=== PATIENT | male | born 1995 | race Caucasian/White ===

== ENCOUNTER 2019-11-11 11:55 | Emergency (ER) | payer OTHER ==
[2019-11-11 12:23] VITALS: BP 147/78
--- NOTE | 2019-11-11 12:54 | ED Physician Documentation ---
PD HPI MAJOR TRAUMA - Stated complaint Stated Complaint: RIB PX - Chief complaint Chief Complaint: Trauma Ch/Bk - History obtained from History obtained from: Patient - History of Present Illness Mechanism of injury: Fell Where injury occurred: Work (fell into a machine and struck right lateral ribs, few days ago and has had persistent pain despite OTC meds.) Timing - onset: How many days ago (3) Injury(ies) location: Chest (right lateral lower ribs) Quality of pain: Aching, Sharp Associated symptoms: No: LOC, Neck pain, Weakness Worsens with: Movement, Palpation, Other (deep breathing) Review of Systems Constitutional: denies: Fever, Chills Nose: denies: Rhinorrhea / runny nose, Congestion Throat: denies: Sore throat Cardiac: denies: Palpitations, Pedal edema, Calf pain Respiratory: denies: Dyspnea, Cough, Wheezing GI: denies: Abdominal Pain, Nausea, Vomiting PD PAST MEDICAL HISTORY - Past Medical History Past Medical History: No - Present Medications Home Medications: Ambulatory Orders Medication Instructions Recorded Confirmed Hydrocodone/Acetaminophen 1 each PO Q6H PRN #15 tablet 11/11/19 [Hydrocodone-Acetamin 5-325 mg] Ibuprofen [Motrin] 600 mg PO TID PRN #25 tab 11/11/19 - Allergies Allergies/Adverse Reactions: Allergies Allergy/AdvReac Type Severity Reaction Status Date / Time No Known Drug Allergies Allergy Verified 11/11/19 12:22 PD ED PE NORMAL - Vitals Vital signs reviewed: Yes - General General: Alert and oriented X 3, No acute distress (resting easily. Seems uncomfortable with twisting or moderate breathing. ), Well developed/nourished - Neck Neck: Supple, no meningeal sign, No bony TTP, No adenopathy - Cardiac Cardiac: RRR, No murmur - Respiratory Respiratory: Clear bilaterally, Other (right lateral chest wall with tenderness without crepitance about ribs 8-10. No bruising. ) - Abdomen Abdomen: Soft - Derm Derm: Normal color, Warm and dry - Extremities Extremities: Normal ROM s pain Results - Vitals Vitals: Vital Signs - 24 hr 11/11/19 12:20 Temperature 36.5 C Heart Rate 88 Respiratory 16 Rate Blood Pressure 147/78 H O2 Saturation 99 Oxygen O2 Source Room air - Rads (name of study) right ribs with CXR Radiology: Prelim report reviewed (normal without fracture seen. Lungs clear. ), See rad report PD MEDICAL DECISION MAKING - ED course Complexity details: reviewed results, considered differential (seems contusion chestwall. to get xrays ribs to eval for fractures. ), d/w patient Departure - Departure Disposition: 01 Home, Self Care Clinical Impression: Chest wall contusion Qualifiers: Encounter type: initial encounter Laterality: right Qualified Code(s): S20.211A - Contusion of right front wall of thorax, initial encounter Accidental fall Qualifiers: Encounter type: initial encounter Qualified Code(s): W19.XXXA - Unspecified fall, initial encounter Condition: Stable Record reviewed to determine appropriate education?: Yes Instructions: ED Contusion Chest Wall Follow-Up: ALBERTO Quach [Provider Group] Prescriptions: Hydrocodone/Acetaminophen [Hydrocodone-Acetamin 5-325 mg] 1 each PO Q6H PRN #15 tablet PRN Reason: Pain Ibuprofen [Motrin] 600 mg PO TID PRN #25 tab PRN Reason: Pain Comments: Fracture seen on your x-ray. Presume some bruising of the chest wall and ribs. This can still hurt well for even a week or so. Ibuprofen 3 times a day. Limited activity for another 2 to 3 days. Add hydrocodone if needed for pain. Recheck if not improved over the next several days. Forms: Activity restrictions Discharge Date/Time: 11/11/19 13:25
--- NOTE | 2019-11-11 13:03 | XRAY Report ---
PROCEDURE: Ribs w/PA Chest RT INDICATIONS: trauma TECHNIQUE: 4 views of the right ribs were acquired, along with a single view chest. COMPARISON: None FINDINGS: Surgical changes and devices: None. Bones and chest wall: No fractures or dislocations. No suspicious bony lesions. Overlying soft tis sues appear unremarkable. Lungs and pleura: No pleural effusions or pneumothorax. Lungs appear clear. Mediastinum: Mediastinal contours appear normal. Heart size is normal. IMPRESSION: No gross displaced right rib fracture is seen. No acute cardiopulmonary pathology. Reviewed by: Harlan Mina MD on 11/11/2019 1:02 PM PDT Approved by: Harlan Mina MD on 11/11/2019 1:02 PM PDT Station ID: [id number]
[2019-11-11] MEDS ORDERED: HYDROcod/ACETAM 5/325 MG TABLET PO STA (13:10)
== END 2019-11-11 13:25 | disposition home or self-care (01) ==
LOC: ED 11:55
DX: S20.211A Contusion of right front wall of thorax, initial encounter (principal); W22.09XA Striking against other stationary object, initial encounter; Y99.0 Civilian activity done for income or pay
CPT/HCPCS: 71101; 99283; 99284; A9270

== ENCOUNTER 2020-01-15 17:52 | Emergency (ER) | payer OTHER ==
--- NOTE | 2020-01-15 17:56 | ED Physician Documentation ---
PD HPI HEENT - Stated complaint Stated Complaint: MOUTH PX/POST OP - History obtained from History obtained from: Patient - History of Present Illness Timing - onset: Today (this afternoon) Timing - duration: Hours (he had oral surgery with some revision of right mandible and reconstruction of gingiva. Told to take Tylenol. No Rx. He states pain is considerable once the anesth has worn off.) Timing - details: Abrupt onset, Still present Location: Mouth (right mandible/lower gingiva area.) Improves: No: Medication (Tylenol without improvement.) Associated symptoms: No: Fever Similar symptoms before: Has not had sx before Recently seen: Not recently seen Review of Systems Constitutional: denies: Fever, Chills Neurologic: denies: Focal weakness, Numbness, Headache PD PAST MEDICAL HISTORY - Past Surgical History Past Surgical History: No - Present Medications Home Medications: Ambulatory Orders Medication Instructions Recorded Confirmed Hydrocodone/Acetaminophen 1 each PO Q6H PRN #15 tablet 11/11/19 [Hydrocodone-Acetamin 5-325 mg] Ibuprofen [Motrin] 600 mg PO TID PRN #25 tab 11/11/19 HYDROcod/ACETAM 5/325 [[place] 5/325] 1 ea PO Q6H PRN #16 tablet 01/15/20 Ibuprofen [Motrin] 600 mg PO TID PRN #25 tab 01/15/20 - Allergies Allergies/Adverse Reactions: Allergies Allergy/AdvReac Type Severity Reaction Status Date / Time No Known Drug Allergies Allergy Verified 01/15/20 17:58 - Social History Does the pt smoke?: No Smoking Status: Never smoker Does the pt drink ETOH?: Yes Does the pt have substance abuse?: No - Immunizations Immunizations are current?: Yes PD ED PE NORMAL - Vitals Vital signs reviewed: Yes - General General: Alert and oriented X 3, Well developed/nourished - HEENT HEENT: Other (right lower gingiva with sutures in place and tenderness along the gumline. No swelling nor drainage. ) Results - Vitals Vitals: Vital Signs - 24 hr 01/15/20 17:55 Temperature 37.2 C Heart Rate 88 Respiratory 16 Rate Blood Pressure 141/102 H O2 Saturation 100 Oxygen O2 Source Room air PD MEDICAL DECISION MAKING - ED course Complexity details: considered differential (the degree of procedure seems likely to hurt a lot. So some pain meds short term (few days) is reasonable. ), d/w patient Departure - Departure Disposition: 01 Home, Self Care Clinical Impression: Status post dental religion, Mandible pain Condition: Stable Record reviewed to determine appropriate education?: Yes Prescriptions: Ibuprofen [Motrin] 600 mg PO TID PRN #25 tab PRN Reason: Pain HYDROcod/ACETAM 5/325 [[place] 5/325] 1 ea PO Q6H PRN #16 tablet PRN Reason: Pain Comments: Continue with any local mouth care prescribed by the oral surgeon. Use some anti-inflammatory of ibuprofen 3 times a day with food. To that add Tylenol or hydrocodone as needed for pain. I would anticipate improvement in the pain over the first several days and hopefully be able to use just the ibuprofen and Tylenol after that point. Forms: Activity restrictions Discharge Date/Time: 01/15/20 18:20
[2020-01-15 17:58] VITALS: BP 141/102
[2020-01-15] MEDS ORDERED: IBUPROFEN 600 MG TABLET PO STA (18:11)
== END 2020-01-15 18:20 | disposition home or self-care (01) ==
LOC: ED 17:52
DX: G89.18 Other acute postprocedural pain (principal); R68.84 Jaw pain; Z98.811 Dental restoration status
CPT/HCPCS: 99282; 99283; A9270

== ENCOUNTER 2020-10-02 19:07 | Emergency (ER) | payer OTHER ==
[2020-10-02 19:15] VITALS: BP 152/40
--- NOTE | 2020-10-02 19:22 | ED Physician Documentation ---
History of Present Illness - Stated complaint Stated Complaint: SPIDER BITE - Additonal information Additional information: 25-year-old male presents emergency department for evaluation of a what he believes is a spider bite on his right ring toe that he noticed this morning. Since then he has had increased redness and swelling and has become painful. No history of similar. Denies a history of MRSA. PD PAST MEDICAL HISTORY - Past Medical History Past Medical History: No - Past Surgical History Past Surgical History: No - Present Medications Home Medications: Ambulatory Orders Medication Instructions Recorded Confirmed Doxycycline Hyclate 100 mg PO BID 5 Days #10 10/02/20 - Allergies Allergies/Adverse Reactions: Allergies Allergy/AdvReac Type Severity Reaction Status Date / Time No Known Drug Allergies Allergy Verified 10/02/20 19:15 - Social History Does the pt smoke?: No Smoking Status: Never smoker Does the pt drink ETOH?: Yes Does the pt have substance abuse?: No - Immunizations Immunizations are current?: Yes PD ED PE EXPANDED - Extremities Extremities: Right toe(s) (Small pinpoint papule on the right ring toe with surrounding erythema but no induration or swelling.) Results - Vitals Vitals: Vital Signs - 24 hr 10/02/20 19:13 Temperature 37.3 C Heart Rate 96 Respiratory 16 Rate Blood Pressure 152/40 H O2 Saturation 100 Oxygen O2 Source Room air PD MEDICAL DECISION MAKING - ED course Complexity details: re-evaluated patient, d/w patient ED course: Well-appearing 25-year-old male presents emergency department with a bite on his right ring toe that he noticed this morning that has gotten redder and now more painful. I suspect an early localized reaction or infection. I recommended he place a warm compress or soak the toe in warm water with antibiotic for 2-3 times a day. If not markedly improving then fill the prescription as directed. Emergent return precautions discussed. Departure - Departure Disposition: 01 Home, Self Care Clinical Impression: Bug bite Qualifiers: Encounter type: initial encounter Qualified Code(s): W57.XXXA - Bitten or stung by nonvenomous insect and other nonvenomous arthropods, initial encounter Condition: Stable Record reviewed to determine appropriate education?: Yes Instructions: ED Wound Care Prescriptions: Doxycycline Hyclate 100 mg PO BID 5 Days #10 Comments: Demarco the bite on your toe may have a very mild early infection. I would like you to compress over it for 10 minutes 3 times a day and then any antibiotic ointment. Typically with something the small warm compress is likely to make it resolved within a few days. If not resolving or worsening before then, then please fill the prescription for the antibiotics. Return to the emergency department if you have any concerns such as fevers red streaking uncontrolled vomiting or significant foot swelling.
== END 2020-10-02 19:31 | disposition home or self-care (01) ==
LOC: ED 19:07
DX: M79.674 Pain in right toe(s) (principal); W57.XXXA Bitten or stung by nonvenomous insect and other nonvenomous arthropods, initial encounter
CPT/HCPCS: 99281; 99282

== ENCOUNTER 2021-03-11 17:35 | Emergency (ER) | payer OTHER ==
[2021-03-11] MEDS ORDERED: KETOROLAC 60 MG/2 ML VIAL IM STA (19:17)
--- NOTE | 2021-03-11 19:18 | ED Physician Documentation ---
History of Present Illness - Stated complaint Stated Complaint: POST WISDOM TEETH SURG PX - Chief complaint Chief Complaint: Heent - History obtained from History obtained from: Patient - Additonal information Additional information: 25yM p/w persistent pain s/p wisdom tooth surgery earlier today. patient was given tramadol rx without relief. throbbing, constant, localized to the sites of extraction, nonradiating, worse with pressing on area, severe. denies swelling, bleeding fever. Review of Systems Constitutional: denies: Fever, Chills Throat: reports: Dental pain / toothache. denies: Oral lesions / sores PD PAST MEDICAL HISTORY - Past Surgical History Past Surgical History: No - Present Medications Home Medications: Ambulatory Orders Medication Instructions Recorded Confirmed Doxycycline Hyclate 100 mg PO BID 5 Days #10 10/02/20 Ketorolac [Toradol] 10 mg PO Q6H PRN #30 tablet 03/11/21 - Allergies Allergies/Adverse Reactions: Allergies Allergy/AdvReac Type Severity Reaction Status Date / Time No Known Drug Allergies Allergy Verified 03/11/21 19:10 - Social History Does the pt smoke?: No Smoking Status: Never smoker Does the pt drink ETOH?: Yes Does the pt have substance abuse?: No - Immunizations Immunizations are current?: Yes PD ED PE NORMAL - Vitals Vital signs reviewed: Yes - General General: Alert and oriented X 3, No acute distress, Well developed/nourished - HEENT HEENT: Atraumatic, PERRL, EOMI, Other (dental packing in place, hemostatic. no periodontal pain or swelling) - Neck Neck: Supple, no meningeal sign Results - Vitals Vitals: Vital Signs - 24 hr 03/11/21 03/11/21 19:04 19:29 Temperature 36.9 C Heart Rate 75 64 Respiratory 156 H 18 Rate Blood Pressure 136/74 H 134/84 H O2 Saturation 100 100 Oxygen O2 Source Room air PD MEDICAL DECISION MAKING - ED course ED course: 25yM p/w persistent pain s/p wisdom tooth surgery. has not taken any nsaids yet. toradol provided in addition to script. advised not to take with other nsaids. return precautions given. f/u dental. Departure - Departure Disposition: Home, Self Care Clinical Impression: Spruce teeth extracted Condition: Stable Instructions: Teeth Spruce Removal Prescriptions: Ketorolac [Toradol] 10 mg PO Q6H PRN #30 tablet PRN Reason: Pain Comments: You were seen in the ED after wisdom tooth removal. Please follow up with your dental surgeon tomorrow. return to the ED if you have new or worsening symptoms or other concerns. Do not take other NSAIDs within 6 hours of toradol. Discharge Date/Time: 03/11/21 19:53
[2021-03-11 19:53] VITALS: BP 134/84
== END 2021-03-11 19:53 | disposition home or self-care (01) ==
LOC: ED 17:35
DX: G89.18 Other acute postprocedural pain (principal); K13.79 Other lesions of oral mucosa
CPT/HCPCS: 96372; 99283

== ENCOUNTER 2021-11-30 07:48 | Emergency (ER) | payer OTHER ==
[2021-11-30 07:54] VITALS: BP 127/69
--- NOTE | 2021-11-30 08:20 | ED Physician Documentation ---
PD HPI OPHTHO - Stated complaint Stated Complaint: RT EYE IRRITATED - Chief complaint Chief Complaint: Heent - History obtained from History obtained from: Patient - History of Present Illness Timing - onset: How many days ago (2-3) Timing - duration: Days (2-3) Timing - details: Gradual onset Location: Right Quality / character: Aching Associated symptoms: Redness, Swelling (upper eyelid that has gradually expanded, to now be eyelid and upper cheek.), Other (tried warm compresses to area periodically without improvement, thinking stye.) Contributing factors: No: Exposed to conjunctivitis, Recent URI, FB, Wears contacts Similar symptoms before: Has not had sx before Recently seen: Not recently seen Review of Systems Constitutional: denies: Fever, Chills Eyes: denies: Loss of vision, Decreased vision, Photophobia, Discharge Ears: denies: Ear pain, Drainage/discharge Nose: denies: Rhinorrhea / runny nose, Congestion Throat: denies: Sore throat Respiratory: denies: Cough Skin: denies: Rash PD PAST MEDICAL HISTORY - Past Medical History Cardiovascular: None Respiratory: None Endocrine/Autoimmune: None - Past Surgical History Past Surgical History: No - Present Medications Home Medications: Ambulatory Orders Medication Instructions Recorded Confirmed Ibuprofen [Motrin] 600 mg PO TID PRN #20 tab 11/30/21 cephALEXin [Keflex] 500 mg PO QID 5 Days #20 cap 11/30/21 - Allergies Allergies/Adverse Reactions: Allergies Allergy/AdvReac Type Severity Reaction Status Date / Time No Known Drug Allergies Allergy Verified 03/11/21 19:10 - Social History Does the pt smoke?: No Smoking Status: Never smoker Does the pt drink ETOH?: Yes Does the pt have substance abuse?: No - Immunizations Immunizations are current?: Yes PD ED PE NORMAL - Vitals Vital signs reviewed: Yes - General General: Alert and oriented X 3, No acute distress, Well developed/nourished - HEENT HEENT: PERRL, EOMI, Ears normal, Pharynx benign, Other (right lower lid with local swelling and redness without fluctuance nor firmness. Some redness extending to rest of lower lid and upper cheek. No pain with eye movement. ) - Neck Neck: Supple, no meningeal sign, No adenopathy - Derm Derm: Normal color, Warm and dry Results - Vitals Vitals: Oxygen O2 Source Room air Departure - Departure Disposition: 01 Home, Self Care Clinical Impression: Cellulitis of right eyelid Condition: Stable Record reviewed to determine appropriate education?: Yes Instructions: ED Cellulitis Facial Prescriptions: cephALEXin [Keflex] 500 mg PO QID 5 Days #20 cap Ibuprofen [Motrin] 600 mg PO TID PRN #20 tab PRN Reason: Pain Comments: This does look like an infection of the eyelid and the skin tissue around that area. We can treated with warm compresses 2-3 times daily to help promote drainage from the eyelid glands. Also cephalexin antibiotic 4 times daily for the next 5 days. Add ibuprofen 3 times daily for the next several days to help with swelling and pain. Add Tylenol every 4-6 hours if needed. I transmitted prescription to [facility] pharmacy in [place]. Recheck if not improving well over the next 1 to 2 days and resolved by 2 to 3 days. Return if worse. Discharge Date/Time: 11/30/21 09:08
[2021-11-30] MEDS ORDERED: cephALEXin 250 MG CAPSULE PO STA (08:46)
[2021-11-30] MEDS ORDERED: IBUPROFEN 600 MG TABLET PO STA (08:46)
== END 2021-11-30 09:08 | disposition home or self-care (01) ==
LOC: ED 07:48
DX: H00.032 Abscess of right lower eyelid (principal)
CPT/HCPCS: 99282; 99284; A9270

== ENCOUNTER 2021-12-13 16:39 | Outpatient (CLI) | payer OTHER ==
--- NOTE | 2021-12-13 20:18 | MRI Report ---
PROCEDURE: BRAIN WO INDICATIONS: MIGRAINE TECHNIQUE: Noncontrast axial T1 spin echo, axial T2 fast spin echo, sagittal and axial FLAIR, coronal T2 fast sp in echo, axial gradient echo, axial diffusion and ADC through the brain. COMPARISON: None. FINDINGS: Image quality: Excellent. CSF Spaces: Basal cisterns are patent. No extra-axial fluid collections. Ventricles are normal in size and shape. Brain: No intracranial masses or hemorrhage. Sharma/white matter interface is normal. Brainstem appe ars normal. Diffusion-weighted images demonstrate no acute ischemic insult. No chronic ischemic ins ults. Normal intravascular flow voids are present. Skull and face: Calvarium has normal marrow signal. Orbits appear normal. Sinuses: Sinuses and mastoids are clear. IMPRESSION: Normal MRI of the brain. Reviewed by: Bora Cardenas MD on 12/13/2021 8:16 PM PDT Approved by: Bora Cardenas MD on 12/13/2021 8:16 PM PDT Station ID: [id number]
== END 2021-12-13 16:40 | disposition home or self-care (01) ==
LOC: DI 16:39
PROVIDERS: ATTEND Physician Assistant
DX: G43.909 Migraine, unspecified, not intractable, without status migrainosus (principal)

== ENCOUNTER 2022-01-07 11:03 | Outpatient (CLI) | payer OTHER ==
--- NOTE | 2022-01-07 11:47 | SLEEP CARE CONSULTATION ---
Information from patient questionnaire entered by Jesica Soliman. I have reviewed and concur with the information entered by Jesica Soliman. This document represents the service I personally performed and the decisions made by me, Lisa Pina ARNP. History of Present Illness Service Date and Time: 01/07/2022 1103 Reason for Visit: New patient Chief Complaint: reports: Unrefreshed sleep, Snoring, Excessive daytime sleepiness, Frequent awakenings at night Date of Onset: 3YRS Usual bedtime: 10PM Time it takes to fall asleep: 3HRS Snores at night: Yes Observed to quit breathing while asleep: Yes Sleeps alone due to snoring: No Number of times waking at night: 5 Reasons for waking at night: reports: Other (UNKOWN REASONS) Toss, Turn, or Twitch while sleeping: Yes Recalls having dreams: Yes Usually gets out of bed at: 5AM Feels refreshed in the morning: No Morning headache: Yes (daily; getting migraines too (3 days a wk); takes crys lgesic, gone 1 hr+) Sleepy or fatigued during the day: Yes Ever fallen asleep while driving: Yes (drowsy driving, near miss but no accidents) Takes day naps: No (can doze off without meaning to at work) Dreams during day naps: No Prior sleep studies: No Additional HPI information: I had the pleasure of seeing RAÚL SANDERSON today regarding the possibility of him having a sleep disorder. His current complaints are excessive daytime sleepiness, frequent night awakenings, snoring and unrefreshed sleep. He states he has a hard time falling asleep, he lays down 10-11 PM but takes a couple hours to fall asleep. He will then wake up about 4 times a night because he feels "irritable" in his legs or with concerns about being late next day. He states he snores and has occasional times when he wake up gasping for air. He has woken himself snoring. He states his mother has restless legs too. His father snore loudly and his mother thinks he has sleep apnea but he has never been tested. - Parasomnia Symptoms Ever been unable to move upon waking from sleep: Yes (occasional; more when younger) Walks in sleep: No Talks in sleep: Yes Ever acted out dreams in sleep: Yes (flail arms in sleep) Ever felt weak in the knees when startled or emotional: Yes (has not fallen to ground) Bothered by creepy, crawly, restless sensations in legs: Yes (almost all day; always moving) Problems with memory or concentration: Yes (forgets a lot; hard to concentrate) Subjective Initial Oneco Sleepiness Scale score: 16 (01/07/2022) Past Medical History Past Medical History: reports: Other (insomnia; migraines) Social History The patient's occupation is a AM. Patient is Legally and lives in . Have you smoked in the past 12 months: No Alcohol use: Yes Alcohol amount and frequency: 2 BEERS EVERYDAY Caffeine use: No Family History Family history of sleep disordered breathing: Yes Family Hx Sleep Apnea: Mother: Snoring, Father: Snoring, Sleep apnea - Untreated, Sibling: Snoring, Grandparent: Snoring Allergies and Home Medications Known drug allergies: No Drug allergies reviewed: Yes Home medication list reviewed: Yes Allergy and home medication list: Medications: Trazodone, prn Sumatriptan, prn migraines Review of Systems Weight gain over past 5 years: 20 Weight loss over past 5 years: 20 Gastrointestinal: reports: difficulty swallowing Neurological: reports: headaches Ear/Nose/Throat: reports: wisdom teeth removed. denies: tonsillectomy Physical Exam Vital signs obtained and entered by: JESICA Hawkins MA Blood Pressure: 112/70 (LEFT ARM) Cuff size: regular Heart Rate: 79 O2 Saturation: 96 Height: 5 ft 9.5 in Weight: 134 lb 9.6 oz Body Mass Index: 19.5 BMI Classification: Normal Neck circumference: 15 (inches) Mouth and throat: narrow oropharynx Soft palate: long Hard palate: normal Uvula: normal Uvula visualization: 50% Mallampati Class II Tongue: enlarged in size with teeth sagastume on lateral edges Tonsils: small Neck: normal w/o lymphadenopathy or thyromegaly Heart: regular rate and rhythm Lungs: clear bilaterally Impression and Plan 1. Suspected Obstructive Sleep Apnea-Hypopnea Syndrome, as suggested by a history of loud and irregular snoring, gasping or choking in sleep, morning headache, frequent awakening during the night, unrefreshed sleep, cognitive impairment, and excessive daytime sleepiness. Narrow oropharynx and obesity are common predisposing factors for obstructive sleep apnea-hypopnea syndrome. I recommend proceeding to polysomnography to confirm the diagnosis and to assess severity. If the patient has significant sleep disordered breathing, a manual CPAP titration study will also be performed to find the optimal treatment pressure. I informed the patient of what the sleep studies involve and after some discussion, obtained agreement to proceed. The pathophysiology of obstructive sleep apnea-hypopnea syndrome was discussed with the patient and health risks of cardiovascular and cerebrovascular disease if not treated. Risks of drowsy driving discussed in detail and patient advised to avoid long distance driving and to lathe puller at the first sign of drowsiness. Patient agreed to plan. * Schedule polysomnography * Avoid long distance driving or driving when feeling sleepy. * Avoid alcohol, sedative and muscle relaxant around bedtime. * Review instructions provided by trained office staff on how to prepare for the sleep study. * Return for follow-up after sleep study completed. Visit Type: In Office Time Spent with Patient (minutes): 30 Provider Statement: I spent 100% of the Face to Face Visit with the patient with greater than 50% spent counseling the patient and coordination of care.
[2022-01-07 11:58] VITALS: BP 112/70
== END 2022-01-07 11:04 | disposition home or self-care (01) ==
LOC: SC 11:03
PROVIDERS: ATTEND Nurse Practitioner Family
DX: R06.83 Snoring (principal); G47.10 Hypersomnia, unspecified; G47.8 Other sleep disorders; R51.9 Headache, unspecified
CPT/HCPCS: 99203; 99212

== ENCOUNTER 2022-07-31 15:05 | Emergency (ER) | payer OTHER ==
[2022-07-31 15:19] VITALS: BP 120/79
--- NOTE | 2022-07-31 15:24 | ED Physician Documentation ---
PD HPI HEENT - Stated complaint Stated Complaint: HEARING LOSS, EAR PX - Chief complaint Chief Complaint: Heent - History obtained from History obtained from: Patient (He went to a very loud music show and now has left ear pain and some bloody drainage starting last night.) PD PAST MEDICAL HISTORY - Past Medical History Cardiovascular: None Respiratory: None Endocrine/Autoimmune: None - Past Surgical History Past Surgical History: No - Present Medications Home Medications: Ambulatory Orders Medication Instructions Recorded Confirmed Ibuprofen [Motrin] 600 mg PO TID PRN #20 tab 11/30/21 01/07/22 traZODone [Desyrel] See Rx Instructions .ROUTE .COMPLEX 01/07/22 01/07/22 Ofloxacin [Ofloxacin Otic drops] 5 drops OT BID #10 ml 07/31/22 - Allergies Allergies/Adverse Reactions: Allergies Allergy/AdvReac Type Severity Reaction Status Date / Time No Known Drug Allergies Allergy Verified 07/31/22 15:16 - Social History Does the pt smoke?: No Smoking Status: Never smoker Does the pt drink ETOH?: Yes Does the pt have substance abuse?: No - Immunizations Immunizations are current?: Yes PD ED PE NORMAL - Vitals Vital signs reviewed: Yes - General General: Alert and oriented X 3, No acute distress - HEENT HEENT: Other (Right TM normal, left TM difficult to see because of cerumen but there is some bloody drainage and I think a small rupture. No infection at this juncture.) - Neck Neck: Supple, no meningeal sign, No bony TTP - Neuro Neuro: Alert and oriented X 3, Normal speech Results - Vitals Vitals: Vital Signs - 24 hr 07/31/22 15:13 Temperature 36.2 C L Heart Rate 88 Respiratory 16 Rate Blood Pressure 120/79 O2 Saturation 100 Oxygen O2 Source Room air Departure - Departure Disposition: 01 Home, Self Care Clinical Impression: Tympanic membrane rupture Qualifiers: Laterality: left Qualified Code(s): H72.92 - Unspecified perforation of tympanic membrane, left ear Condition: Good Record reviewed to determine appropriate education?: Yes Instructions: ED Rupture Eardrum Traumatic Prescriptions: Ofloxacin [Ofloxacin Otic drops] 5 drops OT BID #10 ml Comments: Talk with your PCM tomorrow about a referral to ENT. Return if worse.
== END 2022-07-31 15:30 | disposition home or self-care (01) ==
LOC: ED 15:05
DX: H72.92 Unspecified perforation of tympanic membrane, left ear (principal)
CPT/HCPCS: 99282; 99283

== ENCOUNTER 2022-09-21 15:55 | Emergency (ER) | payer OTHER ==
[2022-09-21] MEDS: LIDOCAINE PATCH 5% TOP STA ×2 (16:17→16:43)
--- NOTE | 2022-09-21 16:34 | ED Physician Documentation ---
History of Present Illness - Stated complaint Stated Complaint: RIB PX - Chief complaint Chief Complaint: General - History obtained from History obtained from: Patient - Additonal information Additional information: Patient presents for evaluation of R ribs. Was involved in tubing accident where he accidentally fell on someone on his R side. Has been using icy-hot patches with minimal relief. Unable to make PCP appointment so came to ED for rib evaluation. Review of Systems Constitutional: denies: Fever, Chills GI: denies: Abdominal Pain, Nausea, Vomiting Musculoskeletal: denies: Neck pain, Back pain, Extremity pain PD PAST MEDICAL HISTORY - Past Medical History Cardiovascular: None Respiratory: None Endocrine/Autoimmune: None Psych: Depression, Anxiety, Other Musculoskeletal: None - Past Surgical History Past Surgical History: No - Present Medications Home Medications: Ambulatory Orders Medication Instructions Recorded Confirmed Propranolol ER [Inderal LA] 80 mg PO DAILY 07/31/22 07/31/22 Sumatriptan Succinate [Imitrex] 50 mg PO PRN PRN 07/31/22 07/31/22 Trazodone HCl 100 mg PO HS 07/31/22 07/31/22 buPROPion HCL [Wellbutrin Xl] 300 mg PO DAILY 07/31/22 07/31/22 hydrOXYzine HCL [Hydroxyzine HCl] 10 mg PO Q6HR PRN 07/31/22 07/31/22 Oxycodone HCl/Acetaminophen 1 - 2 each PO Q6H PRN #10 tablet 09/21/22 [Percocet 5-325 mg Tablet] - Allergies Allergies/Adverse Reactions: Allergies Allergy/AdvReac Type Severity Reaction Status Date / Time No Known Drug Allergies Allergy Verified 09/21/22 16:04 - Social History Does the pt smoke?: No Smoking Status: Never smoker Does the pt drink ETOH?: Yes Does the pt have substance abuse?: No - Immunizations Immunizations are current?: Yes PD ED PE NORMAL - Vitals Vital signs reviewed: Yes - General General: Alert and oriented X 3, No acute distress, Well developed/nourished - HEENT HEENT: Atraumatic - Respiratory Respiratory: No respiratory distress - Abdomen Abdomen: Soft, Non tender, Non distended - Back Back: No spinal TTP, Other (R flank/spine tenderness) - Derm Derm: Normal color, Warm and dry, No rash - Extremities Extremities: No deformity, Normal ROM s pain - Neuro Neuro: Alert and oriented X 3, 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, No motor deficit, Normal speech - Psych Psych: Normal mood, Normal affect PD ED PE EXPANDED - Back Back visual: 1 - tenderness Results - Vitals Vitals: Oxygen O2 Source Room air - Labs Labs: Laboratory Tests 09/21/22 18:00 Urine Color YELLOW Urine Clarity CLEAR Urine pH 7.0 Ur Specific [place] 1.020 Urine Protein TRACE Urine Glucose (UA) NEGATIVE Urine Ketones NEGATIVE Urine Occult Blood NEGATIVE Urine Nitrite NEGATIVE Urine Bilirubin NEGATIVE Urine Urobilinogen 0.2 (NORMAL) Ur Leukocyte Esterase NEGATIVE Ur Microscopic Review NOT INDICATED Urine Culture Comments NOT INDICATED PD Medical Decision Making - ED course Complexity details: reviewed results, re-evaluated patient, considered differential, d/w patient ED course: Rib/flank pain after accidental tubing injury. No obvious crepitus or deformity, no bruising noted to skin. Lidocaine patch applied to area of pain. Will obtain x-rays. XR negative for acute findings. Patient declined lidocaine patch. UA pending, if large amounts of occult blood will consider imaging. UA sent to lab, pending analysis. Patient care handed to oncoming provider. Final dispo pending. Departure - Departure Disposition: 01 Home, Self Care Clinical Impression: Rib contusion Condition: Stable Instructions: ED Contusion Chest Wall Prescriptions: Oxycodone HCl/Acetaminophen [Percocet 5-325 mg Tablet] 1 - 2 each PO Q6H PRN #10 tablet PRN Reason: pain Comments: ALTERNATE 400MG IBUPROFEN AND UP TO 1000MG OF TYLENOL EVERY 4-6 HOURS (NO MORE THAN 4000MG OF TYLENOL PER 24 HOUR PERIOD). CONTINUE TO APPLY LIDOCAINE PATCHES NEEDED. FOLLOW UP WITH PRIMARY CARE. RETURN IF YOU DO NOT IMPROVE WITHIN A WEEK. Forms: PCP List Discharge Date/Time: 09/21/22 18:36
--- NOTE | 2022-09-21 16:54 | XRAY Report ---
PROCEDURE: Ribs 2 View RT INDICATIONS: TUBING ACCIDENT/RIB PAIN TECHNIQUE: 2 views of the right ribs were acquired. COMPARISON: None. FINDINGS: Surgical changes and devices: None. Bones and chest wall: No fractures or dislocations. No suspicious bony lesions. Overlying soft tis sues appear unremarkable. Lungs and pleura: The visualized lung appears clear. No pleural effusions or pneumothorax are visib le. IMPRESSION: No displaced rib fractures. Reviewed by: Grant Valente MD on 09/21/2022 4:52 PM PDT Approved by: Grant Valente MD on 09/21/2022 4:52 PM PDT Station ID: [id number]
[2022-09-21] MEDS ORDERED: oxyCODONE/ACET 5/325 Prepack 4 PO STA (18:13)
[2022-09-21 18:24] LABS: BILIRUBIN,URINE NEGATIVE (NEGATIVE); CLARITY,URINE CLEAR (CLEAR); GLUCOSE, URINE (UA) NEGATIVE (NEGATIVE); KETONES,URINE (UA) NEGATIVE (NEGATIVE); LEUKOCYTE ESTERASE, URINE NEGATIVE (NEGATIVE); NITRITE,URINE NEGATIVE (NEGATIVE); OCCULT BLOOD,URINE NEGATIVE (NEGATIVE); PROTEIN,URINE TRACE mg/dL (NEGATIVE); UROBILINOGEN,URINE 0.2 (NORMAL) E.U./dL (NORMAL)
[2022-09-21 18:39] VITALS: BP 138/98
--- NOTE | 2022-10-04 17:59 | ED Physician Documentation ---
ED Addendum - Addendum Addendum: 10/04/22 17:58 Dr Orozco asked me to check UA result, it was neg/nl.
== END 2022-09-21 18:36 | disposition home or self-care (01) ==
LOC: ED 15:55
DX: S20.221A Contusion of right back wall of thorax, initial encounter (principal); W51.XXXA Accidental striking against or bumped into by another person, initial encounter; Y93.16 Activity, rowing, canoeing, kayaking, rafting and tubing; Y92.89 Other specified places as the place of occurrence of the external cause
CPT/HCPCS: 71100; 81003; 99283; 99284; A9270; 81001; 87086

== ENCOUNTER 2022-09-28 12:43 | Outpatient (CLI) | payer OTHER ==
--- NOTE | 2022-09-28 13:16 | SLEEP CARE CONSULTATION ---
Information from patient questionnaire entered by Jorden Alvarado. I have reviewed and concur with the information entered by Jorden Alvarado. This document represents the service I personally performed and the decisions made by me, Lisa Pina ARNP. History of Present Illness Service Date and Time: 09/28/2022 1243 Reason for follow up: other (9-month F/U - Never did study) Prior sleep studies: No HPI additional information: I had the pleasure of seeing RAÚL SANDERSON today regarding the possibility of him having a sleep disorder. His current complaints are unrefreshed sleep, snoring, excessive daytime sleepiness and frequent night awakenings. The patient tells me that he normally goes to bed around 10 pm, and it takes him approximately 2-2.5 hours to fall asleep. He has been told that he snores loudly and irregularly at night. He has been observed to stop breathing in his sleep. His bed partner can still sleep in the same bed. He can recall waking up on the average of 3 times during the night. Most of the time he wakes up because of unknown reasons. Once he wakes up he has a hard time getting back to sleep. He averages 3-3.5 hours of sleep nightly. He has occasionally awakened for his own snoring, choking, and having to gasp for air. There is a lot of tossing and turning in his sleep. Generally he can recall having dreams and states he has vivid dreams. He usually wakes up at [id number] and does not feel refreshed. He usually does have a morning headache about 6/7 days a week which last about 1.5-2 hours unless a migraine (lasts longer). During the day he complains of feeling sleepy and fatigued. He has fallen asleep while driving and has gone out of the tarha or fallen asleep at stoplight, no accident. He usually does not take naps during the day. He has some unintentional nap when he falls asleep at work for about 10 minutes. If he naps, upon falling asleep during the day he admits to having vivid dreams. There is somniloquy (sleep talking) but no somnambulism (sleep walking). He has never experienced sleep paralysis. He reports having impaired concentration during the day. Sleep Study - Results Prior sleep studies: No Subjective Initial [place] Sleepiness Scale score: 16 (01/07/2022) Current [place] Sleepiness Scale score: 18 Allergies and Home Medications Known drug allergies: No Drug allergies reviewed: Yes Home medication list reviewed: Yes (Bupropion, sumatriptan, propanolol, amitriptyline) Allergy and home medication list: Allergies No Known Drug Allergies Allergy (Verified 09/21/22 16:04) Review of Systems Review of systems same as previous: Yes (anxiety, depression) Physical Exam Vital signs obtained and entered by: Lisa King NP Blood Pressure: 102/74 Cuff size: wrist (right) Heart Rate: 83 O2 Saturation: 98 Height: 5 ft 10 in Weight: 144 lb 3.2 oz Body Mass Index: 20.7 BMI Classification: Normal Impression and Plan 1. Suspected Obstructive Sleep Apnea-Hypopnea Syndrome, as suggested by a history of loud and irregular snoring, observed cessation of breath while asleep, gasping or choking in sleep, morning headache, frequent awakening during the night, unrefreshed sleep, cognitive impairment, and excessive daytime sleepiness. I recommend proceeding to polysomnography to confirm the diagnosis and to assess severity. If the patient has significant sleep disordered breathing, a manual CPAP titration study will also be performed to find the optimal treatment pressure. I informed the patient of what the sleep studies involve and after some discussion, obtained agreement to proceed. The pathophysiology of obstructive sleep apnea-hypopnea syndrome was discussed with the patient and health risks of cardiovascular and cerebrovascular disease if not treated. Risks of drowsy driving discussed in detail and patient advised to avoid long distance driving and to mold puller at the first sign of drowsiness. Patient agreed to plan. * Schedule polysomnography. * Avoid long distance driving or driving when feeling sleepy. * Avoid alcohol, sedative and muscle relaxant around bedtime. * Review instructions provided by trained office staff on how to prepare for the sleep study. * Return for follow-up after sleep study completed. Visit Type: In Office Time Spent with Patient (minutes): 20 Provider Statement: I spent 100% of the Face to Face Visit with the patient with greater than 50% spent counseling the patient and coordination of care.
[2022-09-28 13:25] VITALS: BP 102/74
== END 2022-09-28 12:44 | disposition home or self-care (01) ==
LOC: SC 12:43
PROVIDERS: ATTEND Nurse Practitioner Family
DX: R06.83 Snoring (principal); G47.8 Other sleep disorders; R06.81 Apnea, not elsewhere classified; R51.9 Headache, unspecified; G47.10 Hypersomnia, unspecified; R53.83 Other fatigue; F32.A Depression, unspecified
CPT/HCPCS: 99212; 99213

== ENCOUNTER 2022-10-13 19:36 | Outpatient (CLI) | payer OTHER | END 2022-10-13 19:37 | disposition home or self-care (01) | LOC: SC 19:36 | PROVIDERS: ATTEND Nurse Practitioner Family | DX: R06.83 Snoring (principal) | CPT/HCPCS: 95810 ==

== ENCOUNTER 2022-11-08 14:33 | Outpatient (CLI) | payer OTHER ==
--- NOTE | 2022-11-08 14:51 | Sleep Patient Instructions ---
Sleep Center Visit Summary - Patient Visit Information Reason for Visit: Sleep Study follow up - Patient Instructions Additional Instructions: Your sleep study today was negative for significant sleep disordered breathing. Follow up with dentist for bruxism. Follow-up as needed. - Clinic Information Contact: [facility] [address] [place] [address] [email or web address] T: [phone]
--- NOTE | 2022-11-08 14:55 | SLEEP CARE CONSULTATION ---
Information from patient questionnaire entered by Jesica Soliman. I have reviewed and concur with the information entered by Jesica Soliman. This document represents the service I personally performed and the decisions made by , Lisa Pina ARNP. History of Present Illness Service Date and Time: 11/08/2022 1433 Initial [place] Sleepiness Scale score: 16 (01/07/2022) Current [place] Sleepiness Scale score: 19 (11/08/22) Additional HPI information: RAÚL SANDERSON returns for follow up and results of the recently performed polysomnography. The patient was informed of the following findings: No significant sleep disordered breathing with an average AHI of 0 and hitesh oxygen saturation of 93%. Bruxism was noted. I explained the pathophysiology behind obstructive sleep apnea. Patient does not have sleep apnea and was advised how weight gain could increase the risk of developing sleep apnea in the future. Patient counseled not drink alcohol less than 4 hours before bedtime as it can increase snoring and apnea. Patient was cautioned about risks of drowsy driving until sleepiness symptoms resolve. Sleep Study - Results Type of Sleep Study: Polysomnography (COMPLETED 10/13/22) Prior sleep studies: No Polysomnography/Home Sleep Study results: IMPRESSION: The quality of the study is good. The patient had reduced sleep efficiency. The sleep architecture was normal. Respiratory monitoring showed no significant sleep disordered tory thing (AHI = 0.0) or hypoxia (hitesh oxygen saturation of 93%). The patient slept mostly supine (supine AHI = 0.0; non-supine = 0.00). Snore was ___ in intensity. There was no significant periodic leg movement of sleep. Cardiac rhythm was normal sinus rhythm without significant arrhythmia. No abnormal behavior (parasomnia) observed during the night. Allergies and Home Medications Known drug allergies: No Drug allergies reviewed: Yes Home medication list reviewed: Yes (no changes) Allergy and home medication list: Allergies No Known Drug Allergies Allergy (Verified 11/07/22 09:48) Review of Systems Review of systems same as previous: Yes (no changes) Physical Exam Vital signs obtained and entered by: JESICA Hawkins MA Blood Pressure: 106/82 (RIGHT WRIST) Cuff size: wrist Heart Rate: 82 O2 Saturation: 100 Height: 5 ft 10 in Weight: 138 lb 12.8 oz Body Mass Index: 19.9 BMI Classification: Normal Impression and Plan 1. Insomnia, unspecified. Insomnia is generally caused by an irregular sleep schedule, spending too much time in bed, napping, caffeine, electronics, lack of a relaxing bedtime ritual and clock watching. Other factors can include anxiety/depression, pain, medications, and obstructive sleep apnea. [employer] How to Sleep Better pamphlet given and reviewed. He states he is getting out of in 2 weeks and leaving area. He was advised to followup on insomnia for CBT when able to help him improve his sleep. He voiced understanding. 2. Bruxism. Bruxism is a condition characterized by the grinding, gnashing, or clenching of teeth. This can occur involuntarily during sleep (known as sleep bruxism) or consciously while awake (awake bruxism). Bruxism can lead to various oral health complications, including tooth wear, jaw disorders, and chronic pain. It is often associated with factors such as stress, anxiety, certain medications, and sleep disorders. Patient encouraged to followup with dentist for further evaluation and treatment of bruxism. He states he already wears a device to protect his teeth and voiced understanding of how important it is to use. * Followup with dentist for bruxism * May followup on insomnia as needed * Attempt to lose weight * Avoid alcohol consumption near bedtime * The patient is cautioned about driving until sleepiness is completely resolved. * Return as needed for follow up. Counseling Topics: Weight control Visit Type: In Office Time Spent with Patient (minutes): 15 Provider Statement: I spent 100% of the Face to Face Visit with the patient with greater than 50% spent counseling the patient and coordination of care.
[2022-11-08 15:00] VITALS: BP 106/82; O2SAT 100
== END 2022-11-08 14:34 | disposition home or self-care (01) ==
LOC: SC 14:33
PROVIDERS: ATTEND Nurse Practitioner Family
DX: G47.00 Insomnia, unspecified (principal); G47.63 Sleep related bruxism
CPT/HCPCS: 99212